=== PATIENT | male | born 1980 | race Caucasian/White ===

== ENCOUNTER 2018-02-08 02:47 | Emergency (ER) | payer SELFPAY ==
[2018-02-08] MEDS ORDERED: CLINDAMYCIN HCL 150 MG CAPSULE PO ONE (03:33)
--- NOTE | 2018-02-08 03:36 | ER Document Report ---
ED General - General Chief Complaint: Facial Swelling Stated Complaint: FACIAL SWELLING Time Seen by Provider: 02/08/18 03:29 Notes: Patient is 38-year-old female who presents with complaint of facial swelling. He noticed that tonight when he woke up. Denies any pain. No difficulty breathing. Difficulty swallowing. Swelling is over the left upper part of the face and includes the upper lip. Fevers. No vomiting. No other complaints at this time. He takes no medications and is otherwise healthy. TRAVEL OUTSIDE OF THE [place] IN LAST 30 DAYS: No - Related Data Allergies/Adverse Reactions: Penicillins Allergy (Verified 02/08/18 03:22) Home Medications: Zoloft 100 mg q day Past Medical History - Social History Smoking Status: Current Every Day Smoker Frequency of alcohol use: None Drug Abuse: None Family History: Reviewed & Not Pertinent Patient has suicidal ideation: No Patient has homicidal ideation: No Renal/ Medical History: Denies: Hx Peritoneal Dialysis Review of Systems - Review of Systems Notes: My Normal Review Basic REVIEW OF SYSTEMS: CONSTITUTIONAL : Denies fever, chills, or sweats. Denies recent illness. EENT: Swelling to left upper face. RESPIRATORY: Denies cough, cold, or chest congestion. Denies shortness of breath, difficulty breathing, or wheezing. GASTROINTESTINAL: Denies nausea, vomiting. SKIN: Denies rash or skin lesions. NEUROLOGICAL: Denies altered mental status or loss of consciousness. Mild headache. Denies weakness or paralysis or loss of use of either side. Denies problems with gait or speech. Denies sensory or motor loss. ALL OTHER SYSTEMS REVIEWED AND NEGATIVE. Physical Exam - Vital signs Vitals: Temp Pulse Resp BP Pulse Ox 97.9 F 83 15 138/89 H 98 02/08/18 02:54 02/08/18 02:54 02/08/18 02:54 02/08/18 02:54 02/08/18 02:54 - Notes Notes: General Appearance: Well nourished, alert, cooperative, no acute distress, no obvious discomfort. Well appearing. Normal voice. No stridor. Vitals: reviewed, See vital signs table. Head: Mild swelling to the left side of the face it starts in the left upper lip and goes around to the left side of face. No swelling below the mandible. Eyes: PERRL, EOMI, Conjuctiva clear Mouth: No decreasd moisture. No glossal or pharyngeal swelling. Patient has dental fractures and significant tooth decay of teeth 10 and 11. No obvious gingival abscess. Throat: No tonsillar inflammation, No airway obstruction, No lymphadenopathy Neck: Supple, no neck tenderness, No thyromegaly Skin: warm, dry, appropriate color, no rash Neuro: speech clear, oriented x 3, normal affect, responds appropriately to questions. Course - Re-evaluation Re-evalutation: 02/08/18 03:41 Patient location of swelling in the patient's poor dentition I suspect that swelling is related to dental infection. I will place him on clindamycin. He said he will call the dentist tomorrow morning to make a close follow-up appointment. I encouraged her return to ER immediately if he has fevers, tongue swelling, throat swelling, difficulty breathing or swallowing, or any swelling below the jaw. Patient agrees with plan will be discharged home. Dictation of this chart was performed using voice recognition software; therefore, there may be some unintended grammatical errors. - Vital Signs Vital signs: Temp Pulse Resp BP Pulse Ox 97.9 F 83 15 138/89 H 98 02/08/18 02:54 02/08/18 02:54 02/08/18 02:54 02/08/18 02:54 02/08/18 02:54 Discharge - Discharge Clinical Impression: Facial swelling, Dental infection Condition: Good Disposition: HOME, SELF-CARE Additional Instructions: Please take the antibiotics as prescribed. please call around to find a dentist that can get you in for an appointment in the next 1-2 days. Please return to the ER immediately if you have swelling below the lower jaw, fevers, difficulty breathing or swallowing, or if you feel unwell. Prescriptions: Clindamycin HCl 300 mg PO ASDIR #56 capsule Forms: Return to Work
[2018-02-08 04:20] VITALS: BP 128/88
== END 2018-02-08 03:55 | disposition home or self-care (01) ==
LOC: ER 02:47
DX: K04.7 Periapical abscess without sinus (principal); R22.0 Localized swelling, mass and lump, head; F17.200 Nicotine dependence, unspecified, uncomplicated; Z88.0 Allergy status to penicillin
CPT/HCPCS: 99283

== ENCOUNTER 2018-09-30 08:44 | Emergency (ER) | payer SELFPAY ==
[2018-09-30 08:48] VITALS: BP 124/88
[2018-09-30] MEDS ORDERED: HYDROCODONE/ACETAMINOPHEN 5-325 MG TABLET PO ONE (09:13)
[2018-09-30] MEDS ORDERED: CLINDAMYCIN HCL 150 MG CAPSULE PO ONE (09:13)
--- NOTE | 2018-09-30 09:16 | ER Document Report ---
HPI - HPI Patient complains to provider of: Dental pain Time Seen by Provider: 09/30/18 09:13 Onset: Yesterday Onset/Duration: Gradual Quality of pain: Achy Pain Level: 3 Context: Patient presents complaining of left upper jaw dental pain that started yesterday with left facial swelling. Patient denies any fever. Associated Symptoms: denies: Fever Exacerbated by: Denies Relieved by: Denies Similar symptoms previously: Yes Recently seen / treated by doctor: No - ROS ROS below otherwise negative: Yes Systems Reviewed and Negative: Yes All other systems reviewed and negative - CONSTITUTIONAL Constitutional: DENIES: Fever, Chills - EENT EENT: DENIES: Sore Throat, Ear Pain, Eye problems Notes: Dental pain - NEURO Neurology: DENIES: Headache - CARDIOVASCULAR Cardiovascular: DENIES: Chest pain - RESPIRATORY Respiratory: DENIES: Trouble Breathing, Coughing - GASTROINTESTINAL Gastrointestinal: DENIES: Nausea, Patient vomiting - MUSCULOSKELETAL Musculoskeletal: DENIES: Neck Pain - DERM Skin Color: Normal Skin Problems: None Past Medical History - General Information source: Patient - Social History Smoking Status: Current Every Day Smoker Chew tobacco use (# tins/day): No Smoking Education Provided: Yes Frequency of alcohol use: None Drug Abuse: None Occupation: HVAC Lives with: Family Family History: Reviewed & Not Pertinent Patient has suicidal ideation: No Patient has homicidal ideation: No Renal/ Medical History: Denies: Hx Peritoneal Dialysis Psychiatric Medical History: Reports: Hx Anxiety Past Surgical History: Reports: Other - Neck incision after dental infection Vertical Provider Document - CONSTITUTIONAL Agree With Documented VS: Yes Exam Limitations: No Limitations General Appearance: WD/WN, No Apparent Distress - INFECTION CONTROL TRAVEL OUTSIDE OF THE [place] IN LAST 30 DAYS: No - HEENT HEENT: Atraumatic, Normocephalic. negative: Pharyngeal Exudate, Pharyngeal Tenderness, Pharyngeal Erythema, Tympanic Membrane Red, Tympanic Membrane Bulging Mouth Diagram: 1 - Dental decay, fracture, no drainable gingival abscess, no trismus Notes: Subtle swelling to left maxillary area, normal skin color and temperature Course - Vital Signs Vital signs: Temp Pulse Resp BP Pulse Ox 98.5 F 87 16 124/88 H 96 09/30/18 08:47 09/30/18 08:47 09/30/18 08:47 09/30/18 08:47 09/30/18 08:47 Discharge - Discharge Clinical Impression: Infected dental caries Condition: Stable Disposition: HOME, SELF-CARE Instructions: Clindamycin ([facility]), Toothache ([facility]) Additional Instructions: Return immediately for any new or worsening symptoms Followup with your primary care provider, call tomorrow to make a followup appointment Follow-up with a dental care provider Prescriptions: Clindamycin HCl [Cleocin Hcl] 300 mg PO QID #28 capsule Naproxen [Naprosyn 250 Nmg Tablet] 1 tab PO BID #14 tablet Forms: Smoking Cessation Education Referrals: [facility] [Provider Group] - Follow up as needed
== END 2018-09-30 09:25 | disposition home or self-care (01) ==
LOC: ER 08:44
DX: K02.9 Dental caries, unspecified (principal); K04.7 Periapical abscess without sinus; R68.84 Jaw pain; F17.200 Nicotine dependence, unspecified, uncomplicated
CPT/HCPCS: 99282

== ENCOUNTER 2019-02-05 14:07 | Emergency (ER) | payer SELFPAY ==
[2019-02-05 14:26] VITALS: BP 138/87
[2019-02-05] MEDS ORDERED: LIDOCAINE 2% VISCOUS SOLN 20 ML UDCUP PO ONE (15:19)
--- NOTE | 2019-02-05 15:23 | ER Document Report ---
HPI - HPI Time Seen by Provider: 02/05/19 15:15 Pain Level: 4 Notes: Patient is a 39-year-old male with no significant past medical history aside from poor dentition who is scheduled for upper teeth extractions in 10 days who presents complaining of increased dental pain and swelling to his right upper jaw area over the past few days. Patient states that he did take one amoxicillin yesterday, and is not sure if that is related as he does have an allergy to penicillins. He has not noticed any swelling of his lips, tongue, throat or any rash otherwise. No trouble breathing or swallowing. Denies any headache, fever, neck pain, URI, sore throat, chest pain, palpitations, syncope, cough, shortness of breath, wheeze, dyspnea, abdominal pain, nausea/vomiting/diarrhea, urinary retention, dysuria, hematuria, or rash. - ROS Systems Reviewed and Negative: Yes All other systems reviewed and negative Past Medical History - Social History Smoking Status: Current Every Day Smoker Frequency of alcohol use: None Drug Abuse: None Family History: Reviewed & Not Pertinent Patient has suicidal ideation: No Patient has homicidal ideation: No Renal/ Medical History: Denies: Hx Peritoneal Dialysis Psychiatric Medical History: Reports: Hx Anxiety Past Surgical History: Reports: Other - Neck incision after dental infection Vertical Provider Document - CONSTITUTIONAL Agree With Documented VS: Yes Notes: PHYSICAL EXAMINATION: GENERAL: Well-appearing, well-nourished and in no acute distress. HEAD: Atraumatic, normocephalic. EYES: Pupils equal round and reactive to light, extraocular movements intact, sclera anicteric, conjunctiva are normal. ENT: EAC clear b/l. TM's intact b/l without erythema, fluid, or perforation. Nares patent and without discharge. oropharynx clear without exudates. No tonsilar hypertrophy or erythema. Moist mucous membranes. No sinus tenderness. Uvula midline. No palatine shift. No tongue protrusion. No respiratory compromise. Mouth: Poor dentition. + severe decay and mild gingivitis. No obvious abscess or discharge noted. + rt upper jaw swelling. + tenderness to tooth #6 NECK: Normal range of motion, supple without lymphadenopathy. No rigidity/meningismus. LUNGS: Breath sounds clear to auscultation bilaterally and equal. No wheezes rales or rhonchi. HEART: Regular rate and rhythm without murmurs, rubs, gallops. NEUROLOGICAL: Cranial nerves grossly intact. Normal speech, normal gait. Normal sensory, motor exams PSYCH: Normal mood, normal affect. SKIN: Warm, Dry, normal turgor, no rashes or lesions noted. - INFECTION CONTROL TRAVEL OUTSIDE OF THE [place] IN LAST 30 DAYS: No Course - Re-evaluation Re-evalutation: 02/05/19 15:22 Patient is an afebrile, well-hydrated, 39-year-old male who presents to the ED with dental pain, suspect nerve root etiology with infection. Vitals are acceptable. PE is otherwise unremarkable. No I&D, labs, or imaging warranted at this time based on H&P. Viscous lidocaine dispensed today. I will send him home with a prescription for cleocin. Low suspicion for any meningitis, sepsis, peritonsillar/pharyngeal abscess, respiratory compromise, Stuart's, temporal arteritis, or other emergent systemic condition at this time. Patient is aware this condition can change from initial presentation and he needs to monitor symptoms closely. Conservative measures otherwise for symptoms. Keep appointment with a dentist for further evaluation and management. Recheck with your PCM this week as well. Return to the ED with any worsening/concerning symptoms otherwise as reviewed in discharge. Patient is in agreement. - Vital Signs Vital signs: Temp Pulse Resp BP Pulse Ox 98.4 F 109 H 18 138/87 H 97 02/05/19 14:25 02/05/19 14:25 02/05/19 14:25 02/05/19 14:25 02/05/19 14:25 Discharge - Discharge Clinical Impression: Pain, dental Condition: Stable Disposition: HOME, SELF-CARE Instructions: Clindamycin ([facility]) Additional Instructions: Boody and floss twice daily Maintain fluid intake Take antibiotics as directed Mouthwash, salt water gargles, peroxide rinse as needed Tylenol/ibuprofen as needed Recheck with PCM this week Keep your appointment with your dentist for further evaluation Return to the ED with any worsening symptoms and/or development of fever, headache, facial swelling, swelling of lips/tongue/throat, trouble swallowing, drooling, hoarseness, neck pain/stiffness, chest pain, palpitations, syncope, shortness of breath, trouble breathing, abdominal pain, n/v/d, numbness/tingling, or other worsening symptoms that are concerning to you. Prescriptions: Clindamycin HCl [Cleocin 300 mg Capsule] 300 mg PO QID #40 capsule Forms: Elevated Blood Pressure, Smoking Cessation Education Referrals: [facility] [Provider Group] - Follow up as needed
== END 2019-02-05 15:33 | disposition home or self-care (01) ==
LOC: ER 14:07
DX: K08.9 Disorder of teeth and supporting structures, unspecified (principal); F17.200 Nicotine dependence, unspecified, uncomplicated
CPT/HCPCS: 99282; J3490

== ENCOUNTER 2019-04-16 21:08 | Emergency (ER) | payer SELFPAY ==
[2019-04-17] MEDS ORDERED: MORPHINE SULFATE 10 MG/ML INJ IV ONE (00:19)
[2019-04-17] MEDS ORDERED: NORMAL SALINE 1000 ML 1,000 ML IV ONE (00:19)
[2019-04-17] MEDS ORDERED: ONDANSETRON HCL INJ/PF 4 MG/2 ML SDV IV ONE (00:19)
[2019-04-17] MEDS ORDERED: KETOROLAC TROMETHAMINE INJ/PF 30 MG/1 ML SDV IV ONE (00:19)
--- NOTE | 2019-04-17 00:30 | ER Document Report ---
ED GI/ - General Chief Complaint: Possible Kidney Stone Stated Complaint: ABDOMINAL PAIN Time Seen by Provider: 04/17/19 00:08 Notes: Patient is a 39-year-old male that comes to the emergency department for chief complaint of left flank pain radiating to the left mid to lower abdomen. Pain started suddenly yesterday morning, he has vomited twice, he started seeing blood in his urine this evening as well. He denies fever/chills. He states he has passed 3 kidney stones in the past, never needed stenting or surgery, does not follow with a urologist. He denies any surgeries, diagnosed medical problems otherwise, or medical history otherwise. TRAVEL OUTSIDE OF THE [place] IN LAST 30 DAYS: No - Related Data Allergies/Adverse Reactions: Penicillins Allergy (Verified 09/30/18 08:46) Past Medical History - General Information source: Patient - Social History Smoking Status: Never Smoker Drug Abuse: None Lives with: Family Family History: Reviewed & Not Pertinent Renal/ Medical History: Reports: Hx Kidney Stones. Denies: Hx Peritoneal Dialysis Psychiatric Medical History: Reports: Hx Anxiety Past Surgical History: Reports: Other - Neck incision after dental infection - Immunizations Immunizations up to date: Yes Hx Diphtheria, Pertussis, Tetanus Vaccination: Yes Review of Systems - Review of Systems Constitutional: No symptoms reported EENT: No symptoms reported Cardiovascular: No symptoms reported Respiratory: No symptoms reported Gastrointestinal: See HPI Genitourinary: See HPI Male Genitourinary: No symptoms reported Musculoskeletal: No symptoms reported Skin: No symptoms reported Hematologic/Lymphatic: No symptoms reported Neurological/Psychological: No symptoms reported Physical Exam - Vital signs Vitals: Temp Pulse Resp BP Pulse Ox 97.4 F 86 18 137/93 H 96 04/16/19 21:29 04/16/19 21:29 04/16/19 21:29 04/16/19 21:29 04/16/19 21:29 - Notes Notes: GENERAL: Patient shifting uncomfortably, appears to be in pain, no severe distress HEAD: Normocephalic, atraumatic. EYES: Pupils equal, round, and reactive to light. Extraocular movements intact. ENT: Oral mucosa moist, tongue midline. Oropharynx unremarkable. LUNGS: Clear to auscultation bilaterally, no wheezes, rales, or rhonchi. No respiratory distress. HEART: Regular rate and rhythm. No murmur ABDOMEN: There is some mild generalized left mid to lower abdominal tenderness, no guarding or rigidity, otherwise unremarkable. GENITOURINARY: No swelling, tenderness, signs of trauma EXTREMITIES: Moves all 4 extremities spontaneously. No edema, normal radial and dorsalis pedis pulses bilaterally. No cyanosis. BACK: no cervical, thoracic, lumbar midline tenderness. No saddle anesthesia, normal distal neurovascular exam. NEUROLOGICAL: Alert and oriented x3. Normal speech. Cranial nerves II through XII grossly intact. PSYCH: Normal affect, normal mood. SKIN: Warm, dry, normal turgor. No rashes or lesions noted. Course - Re-evaluation Re-evalutation: Patient history is very consistent with kidney stone. Urinalysis shows hematuria without infection, CBC, chemistry nonspecific. Discussed with patient, he has passed multiple kidney stones in the past, these were all small, he has had CAT scans in the past, decision was made to proceed with KUB to avoid radiation. KUB showing a 4 mm left-sided nephrolithiasis, nonspecific otherwise. Suspect patient is passing a small stone. I did discuss with patient this was not definite. He is a symptomatic after medications however Patient will be discharged, follow-up with urology, return if he worsens. This was discussed in detail. Patient states understanding and agreement. Stable time of discharge. - Vital Signs Vital signs: Temp Pulse Resp BP Pulse Ox 97.9 F 61 16 132/91 H 97 04/17/19 02:50 04/17/19 02:50 04/17/19 02:50 04/17/19 02:50 04/17/19 02:50 - Laboratory Result Diagrams: 04/17/19 00:31 04/17/19 00:31 Laboratory results interpreted by me: 04/16/19 04/17/19 04/17/19 21:27 00:31 00:31 WBC 12.8 H Glucose 72 L Urine Protein 30 H Urine Blood LARGE H Discharge - Discharge Clinical Impression: Flank pain Abdominal pain Qualifiers: Abdominal location: left lower quadrant Qualified Code(s): R10.32 - Left lower quadrant pain Hematuria Qualifiers: Hematuria type: gross Qualified Code(s): R31.0 - Gross hematuria Disposition: HOME, SELF-CARE Additional Instructions: I suspect you are passing a kidney stone on the left side although this is not definitely visualized on the x-ray, there is what appears to be an additional 4 mm stone in the left kidney which may pass in the future. Drink plenty fluids, take the pain and nausea medications as prescribed if needed, ibuprofen can help as well. Follow-up with the urology referral listed below for additional management, call for your appointment. Return if you worsen including fever, vomiting, severe worsening pain, or any other concerning symptoms. [facility] [address] [place], [place] [id number] [facility] [address] [place], [place] [id number] Zena Mckeon MD Doctor in [place], [place] Address: [address], [place] [address] Prescriptions: Oxycodone HCl/Acetaminophen [Percocet 5-325 mg Tablet] 1 - 2 tab PO TID #12 tablet Promethazine HCl [Phenergan 25 mg Tablet] 25 mg PO Q6H PRN #15 tablet PRN Reason:
[2019-04-17 00:44] LABS: ABSOLUTE EOSINOPHILS # (AUTO) 0.5 10^3/uL (0.0-0.6); ABSOLUTE LYMPHOCYTES (AUTO) 3.6 10^3/uL (0.5-4.7); ABSOLUTE MONOCYTES (AUTO) 0.8 10^3/uL (0.1-1.4); ABSOLUTE NEUT (AUTO) 7.8 10^3/uL (1.7-8.2); BASOPHILS % (AUTO) 0.4 % (0-2); HEMATOCRIT 42.5 % (37.9-51.0); HEMOGLOBIN 14.2 g/dL (13.5-17.0); LYMPHOCYTES % (AUTO) 28.3 % (13-45); MEAN CORPUSCULAR HEMOGLOBIN 31.1 pg (27.0-33.4); MEAN CORPUSCULAR HGB CONC 33.5 g/dL (32.0-36.0); MEAN CORPUSCULAR VOLUME 93 fl (80-97); MONOCYTES % (AUTO) 6.5 % (3-13); PLATELET COUNT 244 10^3/uL (150-450); RED BLOOD COUNT 4.57 10^6/uL (4.35-5.55); SEGMENTED NEUTROPHILS % (AUTO) 60.8 % (42-78); TOTAL CELLS COUNTED % (AUTO) 100 %; WHITE BLOOD COUNT 12.8 10^3/uL (4.0-10.5)
[2019-04-17 01:01] LABS: ALBUMIN 4.2 g/dL (3.5-5.0); ALKALINE PHOSPHATASE 73 U/L (38-126); ANION GAP 9 (5-19); ASPARTATE AMINO TRANSFERASE 21 U/L (17-59); BILIRUBIN,DIRECT 0.3 mg/dL (0.0-0.4); BILIRUBIN,TOTAL 0.4 mg/dL (0.2-1.3); BLOOD UREA NITROGEN 14 mg/dL (7-20); CALCIUM 9.9 mg/dL (8.4-10.2); CARBON DIOXIDE 27 mmol/L (22-30); CHLORIDE 107 mmol/L (98-107); GLUCOSE 72 mg/dL (75-110); POTASSIUM 3.8 mmol/L (3.6-5.0); TOTAL PROTEIN 6.9 g/dL (6.3-8.2)
[2019-04-17 01:13] LABS: APPEARANCE,URINE SLIGHTLY-CLOUDY; BILIRUBIN,URINE NEGATIVE (NEGATIVE); COLOR,URINE YELLOW; GLUCOSE, URINE NEGATIVE (NEGATIVE); KETONES,URINE NEGATIVE (NEGATIVE); LEUKOCYTE ESTERASE,URINE NEGATIVE (NEGATIVE); NITRITE,URINE NEGATIVE (NEGATIVE); PROTEIN,URINE 30 mg/dL (NEGATIVE); URINE SPECIFIC GRAVITY 1.017; UROBILINOGEN,URINE NEGATIVE mg/dL (<2.0)
[2019-04-17] MEDS ORDERED: HYDROMORPHONE HCL INJ/PF 2 MG/ML AMPULE IV ONE (01:16)
--- NOTE | 2019-04-17 01:51 | RADIOLOGY REPORT (SQ) ---
EXAM DESCRIPTION: [facility]Lex: XR ABDOMEN 1 VIEW (KUB) CLINICAL HISTORY: 39 years Male, ? large left sided kidney stone passing COMPARISON: None. FINDINGS: Bowel gas pattern is within normal limits, with no significant distention. No pneumatosis. A 4 mm calcification projects over the upper pole of the left kidney. There is also a 2-3 mm calcification in the region of the renal pelvis. No calcifications along the course of the ureters. Bony structures are unremarkable. IMPRESSION: 1. Probable left renal calculus. 2. No definite ureteral calculi.
[2019-04-17] MEDS ORDERED: ONDANSETRON ODT 4 MG TAB (6 TAB/ER DISP) PO PRN (02:16)
[2019-04-17] MEDS ORDERED: HYDROCODONE/ACETAMINOPHEN 5-325 MG (6 TAB/ER DISP) PO PRN (02:16)
[2019-04-17 02:52] VITALS: BP 132/91
== END 2019-04-17 02:50 | disposition home or self-care (01) ==
LOC: ER 21:08
DX: N20.0 Calculus of kidney (principal); R10.9 Unspecified abdominal pain; R31.0 Gross hematuria; R10.32 Left lower quadrant pain; Z88.0 Allergy status to penicillin
CPT/HCPCS: 36415; 83690; 85025; 80053; 81001; 74018; J1885; J2270; J1170; J2405; J7030; 96361; 96374; 96375; 99284

== ENCOUNTER 2020-05-12 17:57 | Emergency (ER) | payer SELFPAY ==
--- NOTE | 2020-05-12 19:09 | ER Document Report ---
ED Medical Screen (RME) - General Chief Complaint: Chest Pain Stated Complaint: CHEST PAIN Time Seen by Provider: 05/12/20 19:01 TRAVEL OUTSIDE OF THE [place] IN LAST 30 DAYS: No - HPI Notes: 05/12/20 19:08 40-year-old male presents emergency with left-sided chest pain that radiates to his left arm with numbness and tingling that has been intermittent for about approximately 20 to 30 seconds since 5 AM this morning. Reports he also has concurrent dizziness. Denies any prior history of any cardiac issues. Patient is a smoker, states he have not smoked in the last 3 weeks he is on the NicoDerm, denies any cardiac history with his mother's father. Denies any history of diabetes, hypertension or hypercholesterolemia. Patient states is a jabbing pain, knifelike and feels like an elephant is sitting on his chest. Denies any shortness of breath. Denies any fevers or chills. No prior cardiac history prior to today I have greeted and performed a rapid initial assessment of this patient. A co mprehensive ED assessment and evaluation of the patient, analysis of test results and completion of the medical decision making process will be conducted by additional ED providers. PHYSICAL EXAMINATION: GENERAL: Well-appearing, well-nourished and in no acute distress. HEAD: Atraumatic, normocephalic. EYES: Pupils equal round extraocular movements intact, conjunctiva are normal. NECK: Normal range of motion CV: s1, s2 regular. Unable to reproduce chest pain that brought patient to emergency room LUNGS: No respiratory distress Musculoskeletal: Normal range of motion NEUROLOGICAL: Normal speech, normal gait. SKIN: Warm, Dry, normal turgor, no rashes or lesions noted. - Related Data Allergies/Adverse Reactions: Penicillins Allergy (Verified 05/12/20 18:58) Past Medical History - Social History Chew tobacco use (# tins/day): No Frequency of alcohol use: None Drug Abuse: None Renal/ Medical History: Reports: Hx Kidney Stones. Denies: Hx Peritoneal Dialysis Psychiatric Medical History: Reports: Hx Anxiety Past Surgical History: Reports: Other - Neck incision after dental infection - Immunizations Immunizations up to date: Yes Hx Diphtheria, Pertussis, Tetanus Vaccination: Yes Physical Exam - Vital signs Vitals: Temp Pulse Resp BP Pulse Ox 98.4 F 86 16 131/91 H 98 05/12/20 18:29 05/12/20 18:29 05/12/20 18:29 05/12/20 18:29 05/12/20 18:29 Course - Vital Signs Vital signs: Temp Pulse Resp BP Pulse Ox 98.4 F 86 16 131/91 H 98 05/12/20 18:29 05/12/20 18:29 05/12/20 18:29 05/12/20 18:29 05/12/20 18:29
--- NOTE | 2020-05-12 19:50 | RADIOLOGY REPORT (SQ) ---
EXAM DESCRIPTION: CHEST SINGLE VIEW IMAGES COMPLETED DATE/TIME: 05/12/2020 7:36 pm REASON FOR STUDY: chest pain COMPARISON: None. EXAM PARAMETERS: NUMBER OF VIEWS: One view. TECHNIQUE: Single frontal radiographic view of the chest acquired. RADIATION DOSE: NA LIMITATIONS: None. FINDINGS: LUNGS AND PLEURA: No opacities, masses or pneumothorax. No pleural effusion. MEDIASTINUM AND HILAR STRUCTURES: No masses. Contour normal. HEART AND VASCULAR STRUCTURES: Heart normal in size. Normal vasculature. BONES: No acute findings. HARDWARE: None in the chest. OTHER: No other significant finding. IMPRESSION: NO ACUTE RADIOGRAPHIC FINDING IN THE CHEST. TECHNICAL DOCUMENTATION: JOB ID: [id number] 2010 [employer]- All Rights Reserved Reading location - IP/workstation name: [email or web address]
[2020-05-12 19:56] LABS: ABSOLUTE EOSINOPHILS # (AUTO) 0.3 10^3/uL (0.0-0.6); ABSOLUTE LYMPHOCYTES (AUTO) 2.8 10^3/uL (0.5-4.7); ABSOLUTE MONOCYTES (AUTO) 0.7 10^3/uL (0.1-1.4); ABSOLUTE NEUT (AUTO) 5.9 10^3/uL (1.7-8.2); BASOPHILS % (AUTO) 0.5 % (0-2); HEMATOCRIT 45.8 % (37.9-51.0); HEMOGLOBIN 15.9 g/dL (13.5-17.0); LYMPHOCYTES % (AUTO) 28.5 % (13-45); MEAN CORPUSCULAR HGB CONC 34.6 g/dL (32.0-36.0); MEAN CORPUSCULAR VOLUME 92 fl (80-97); MONOCYTES % (AUTO) 6.8 % (3-13); PLATELET COUNT 235 10^3/uL (150-450); RED BLOOD COUNT 4.96 10^6/uL (4.35-5.55); RED CELL DISTRIBUTION WIDTH 13.4 % (11.5-14.0); SEGMENTED NEUTROPHILS % (AUTO) 61.2 % (42-78); TOTAL CELLS COUNTED % (AUTO) 100 %; WHITE BLOOD COUNT 9.7 10^3/uL (4.0-10.5)
[2020-05-12 20:11] LABS: ALBUMIN 4.5 g/dL (3.5-5.0); ALKALINE PHOSPHATASE 89 U/L (38-126); ANION GAP 7 (5-19); ASPARTATE AMINO TRANSFERASE 22 U/L (17-59); BILIRUBIN,DIRECT 0.3 mg/dL (0.0-0.4); BILIRUBIN,TOTAL 0.5 mg/dL (0.2-1.3); BLOOD UREA NITROGEN 12 mg/dL (7-20); CALCIUM 9.5 mg/dL (8.4-10.2); CARBON DIOXIDE 30 mmol/L (22-30); CHLORIDE 105 mmol/L (98-107); CREATINE KINASE 71 U/L (55-170); GLUCOSE 92 mg/dL (75-110); POTASSIUM 4.5 mmol/L (3.6-5.0)
[2020-05-12 20:23] LABS: CREATINE KINASE MB 0.49 ng/mL (<4.55)
[2020-05-12 20:24] LABS: TROPONIN I < 0.012 ng/mL
--- NOTE | 2020-05-12 23:57 | ER Document Report ---
ED General - General Chief Complaint: Chest Pain Stated Complaint: CHEST PAIN Time Seen by Provider: 05/12/20 19:01 TRAVEL OUTSIDE OF THE [place] IN LAST 30 DAYS: No - HPI Notes: Patient is a 40-year-old male who presents to the emergency department for evaluation of left-sided chest pain. He states that started about 1:00 in the morning on Monday the . He was in bed. It woke him from sleep. He d escribed it initially as sharp with a surrounding burning and pressure. It was improved by laying on his left side. Is in his axillary region, radiates up into the anterior chest. He states that initially it made him "catch his breath" but did not make him short of breath. He denies any associated nausea, diaphoresis, near syncope. He states that this pain happened approximately 4-6 times over the next 24 hours. He believes that his left hand looks swollen today, so he presents to the ER for further evaluation. At this point he is not having any pain. He denies any numbness or tingling at this time, but he states that he felt like his left arm might have been numb earlier today. He cannot tell me if that was in association with this pain or not. - Related Data Allergies/Adverse Reactions: Penicillins Allergy (Verified 05/12/20 18:58) Home Medications: None Past Medical History - General Information source: Patient - Social History Smoking Status: Former Smoker Chew tobacco use (# tins/day): No Frequency of alcohol use: None Drug Abuse: None Family History: Reviewed & Not Pertinent, CAD - Grandfather with [place] in his 70s Renal/ Medical History: Reports: Hx Kidney Stones. Denies: Hx Peritoneal Dialysis Psychiatric Medical History: Reports: Hx Anxiety Past Surgical History: Reports: Hx Orthopedic Surgery - Left hand, Other - Neck incision after dental infection - Immunizations Immunizations up to date: Yes Hx Diphtheria, Pertussis, Tetanus Vaccination: Yes Review of Systems - Review of Systems Constitutional: No symptoms reported EENT: No symptoms reported Cardiovascular: See HPI Respiratory: See HPI Gastrointestinal: No symptoms reported Genitourinary: No symptoms reported Musculoskeletal: See HPI Skin: No symptoms reported Neurological/Psychological: No symptoms reported Physical Exam - Vital signs Vitals: Temp Pulse Resp BP Pulse Ox 98.4 F 86 16 131/91 H 98 05/12/20 18:29 05/12/20 18:29 05/12/20 18:29 05/12/20 18:29 05/12/20 18:29 - Notes Notes: Vital signs reviewed, please refer to chart. Head is normocephalic, atraumatic. Pupils equal round, reactive to light. Neck is supple without meningismus. Heart is regular rate and rhythm. Lungs are clear to auscultation bilaterally. No significant abnormality noted on inspection of the chest wall. The patient is tender to palpation over the most lateral aspect of the pectoralis muscle, particularly with flexion at the shoulder. Examination of the left upper extremity yields a very minimal amount of swelling over the dorsum of the hand, particularly over the dorsum overlying 2 well-healed surgical scars. Normal capillary refill, radial pulse 2+, normal sensation. Abdomen is soft, nontender, normoactive bowel sounds throughout. Extremities without cyanosis, clubbing. Posterior calves are nontender. Peripheral pulses are equal. Skin is warm and dry. Patient is awake, alert, neurological exam is nonfocal. Course - Re-evaluation Re-evalutation: 05/13/20 00:04 Patient presents to the emergency department for evaluation. He had laboratory investigations and imaging as ordered through triage. He had EKG which was unremarkable. He had 2- sets of cardiac enzymes. His pain is atypical in nature and is reproducible with palpation. If he has swelling that is different from baseline, I believe this is most likely postsurgical and chronic in nature. He is neurovascularly intact. He does not have any significant risk factors for coronary disease. He is told that he should follow-up with his primary care provider and treat this is musculoskeletal pain at this time. He voiced understanding. He is to return to the ED with worsening or new concerning symptoms of any sort. - Vital Signs Vital signs: Temp Pulse Resp BP Pulse Ox 98.4 F 86 20 128/95 H 98 05/12/20 18:29 05/12/20 18:29 05/12/20 23:01 05/12/20 23:01 05/12/20 23:01 - Laboratory Result Diagrams: 05/12/20 19:40 05/12/20 19:40 - Diagnostic Test Radiology reviewed: Reports reviewed Radiology results interpreted by me: 05/13/20 00:05 Chest X-Ray 05/12/20 19:07 IMPRESSION: NO ACUTE RADIOGRAPHIC FINDING IN THE CHEST. - EKG Interpretation by Me Additional EKG results interpreted by me: 05/13/20 00:05 Sinus mechanism with a rate of 74 bpm. PVCs noted. Normal axis and intervals. No acute ST changes concerning for ischemia or infarction. No old studies available for comparison. Discharge - Discharge Clinical Impression: Chest wall pain Condition: Stable Disposition: HOME, SELF-CARE Instructions: Chest Wall Pain ([facility]) Additional Instructions: Follow-up with your primary care provider this week. Moist heat to the painful area. Tylenol or ibuprofen as needed for pain. If you develop worsening pain o r new concerning symptoms of any sort, please return immediately to the emergency department for evaluation.
[2020-05-13 00:28] VITALS: BP 144/102
--- NOTE | 2020-05-13 00:51 | EKG REPORT ---
SEVERITY:- NORMAL ECG - SINUS RHYTHM : Confirmed by: Kevin Taylor 13-May-2020 00:50:57
== END 2020-05-13 00:28 | disposition home or self-care (01) ==
LOC: ER 17:57
DX: R07.89 Other chest pain (principal); I49.3 Ventricular premature depolarization; Z87.891 Personal history of nicotine dependence; Z88.0 Allergy status to penicillin; Z82.49 Family history of ischemic heart disease and other diseases of the circulatory system
CPT/HCPCS: 36415; 71045; 80053; 82550; 82553; 84484; 85025; 93005; 93010; 99285